=== PATIENT | female | born 1925 | race African-American/Black ===

== ENCOUNTER 2016-04-05 20:58 | Emergency (ER) | payer OTHER, BC ==
--- NOTE | 2016-04-05 21:22 | PDOC ---
History of Present Illness - General History Source: Patient Exam Limitations: No Limitations - History of Present Illness Initial Comments: 04/05/16 21:34 The patient is a 89 year old female with significant past medical history of PVD s/p bypass RLE, PE on eliquis, CAD, TIA, hypertension, hyperlipidemia, COPD , GERD, OA who presents to the ED with left-sided neck pain prior to arrival. Patient reports 1 week of pain, tightness, and tingling in her left leg with 2 episodes of a left arm discomfort that she describes as bubbling sensation. She states while sitting down using her computer, she started to experience some left-sided neck pain and decided to come in. Patient admits that she normally feels some discomfort and tingling her legs after sitting down using her computer for a long period of time. She denies diaphoresis, lightheadedness , SOB, chest pain, nausea, and vomiting. At time of evaluation, she states she is feeling unwell. The patient denies fever, chills, cough, abdominal pain, and diarrhea. Allergies: NKDA Social History: No alcohol, tobacco, or drug use reported. Past Surgical History: PVD s/p bypass RLE, cholecystectomy PCP: Dr. Rosalie Sapp <Merry Yanez - Last Filed: 04/05/16 21:34> <Yoandy Melton - Last Filed: 04/05/16 23:14> - General Chief Complaint: Pain Stated Complaint: PAIN Time Seen by Provider: 04/05/16 21:14 Past History <Merry Yanez - Last Filed: 04/05/16 21:34> - Past Medical History Anemia: No Asthma: No Cancer: No Cardiac Disorders: Yes (ACS) CVA: Yes (TIA) COPD: No CHF: No DVT: Yes (RLE) Diabetes: No GI Disorders: Yes (GERD, PANCREATITIS, DYSPHAGIA) Disorders: Yes (OVERACTIVE BLADDER) HTN: Yes Hypercholesterolemia: Yes Kidney Stones: Yes Liver Disease: No Suicide Attempt (Hx): No Seizures: No Thyroid Disease: No - Surgical History Abdominal Surgery: No Appendectomy: No Cardiac Surgery: (BYPASS FOR RLE DVT) Cholecystectomy: Yes Lung Surgery: No Neurologic Surgery: No Orthopedic Surgery: No - Immunization History Immunization Up to Date: Yes - Psycho/Social/Smoking Cessation Hx Anxiety: No Suicidal Ideation: No Smoking Status: Yes Smoking History: Former smoker Have you smoked in the past 12 months: No Number of Cigarettes Smoked Daily: 6 Cigars Per Day: 0 Information on smoking cessation initiated: No 'Breaking Loose' booklet given: 10/15/14 Hx Alcohol Use: No Drug/Substance Use Hx: No Substance Use Type: None Hx Substance Use Treatment: No <Yoandy Melton - Last Filed: 04/05/16 23:14> - Past Medical History Allergies/Adverse Reactions: Allergies Allergy/AdvReac Type Severity Reaction Status Date / Time No Known Allergies Allergy Verified 04/05/16 21:10 Home Medications: Ambulatory Orders Amlodipine Besylate [Norvasc -] 2.5 mg PO DAILY 04/12/15 Apixaban [Eliquis] 5 mg PO DAILY 04/12/15 Metoprolol Tartrate 25 mg PO BID 04/12/15 Ranitidine [Zantac -] 150 mg PO ONCE 04/12/15 Simvastatin [Zocor -] 20 mg PO HS 04/12/15 Valsartan [Diovan -] 160 mg PO DAILY 04/12/15 Review of Systems - Review of Systems Able to Perform ROS?: Yes Comments:: 04/05/16 21:35 +left-sided neck pain, left leg pain with tightness and tingling, left arm discomfort Absent: fever, chills, cough, diaphoresis, lightheadedness, SOB, chest pain, abdominal pain, nausea, vomiting, and diarrhea <Merry Yanez - Last Filed: 04/05/16 21:34> *Physical Exam - Vital Signs Last Vital Signs Temp Pulse Resp BP Pulse Ox 97.9 F 73 18 139/70 100 04/05/16 21:06 04/05/16 21:06 04/05/16 21:06 04/05/16 21:06 04/05/16 21:06 <Merry Yanez - Last Filed: 04/05/16 21:34> - Vital Signs Last Vital Signs Temp Pulse Resp BP Pulse Ox 97.9 F 73 18 139/70 100 04/05/16 21:06 04/05/16 21:06 04/05/16 21:06 04/05/16 21:06 04/05/16 21:06 - Physical Exam General Appearance: Yes: Nourished, Appropriately Dressed. No: Apparent Distress HEENT: positive: EOMI, DENISE, Normal ENT Inspection Neck: positive: Supple. negative: Tender, Carotid bruit Respiratory/Chest: positive: Lungs Clear, Normal Breath Sounds. negative: Respiratory Distress Cardiovascular: positive: Regular Rhythm, Regular Rate Gastrointestinal/Abdominal: positive: Normal Bowel Sounds, Soft. negative: Tender Musculoskeletal: positive: Normal Inspection. negative: Vertebral Tenderness Extremity: positive: Normal Capillary Refill, Normal Inspection, Normal Range of Motion. negative: Tender Integumentary: positive: Normal Color Neurologic: positive: spirits model II-XII NML intact, Fully Oriented, Alert, Normal Mood/ Affect, Normal Response, Motor Strength 5/5 <Yoandy Melton - Last Filed: 04/05/16 23:14> Heart Score/ECG Review - ECG Impressions Comment:: 04/05/16 21:35 NSR @71bpm Nonspecific T wave abnormality Abnormal ECG <Merry Yanez - Last Filed: 04/05/16 21:34> ED Treatment Course - LABORATORY CBC & Chemistry Diagram: 04/05/16 21:53 04/05/16 21:53 <Yoandy Melton - Last Filed: 04/05/16 23:14> Medical Decision Making - Medical Decision Making 04/05/16 21:22 non specific symptoms normal exam will check urine and lytes as well as an ekg 04/05/16 23:12 normal labs feels better after ivf d/c home <Yoandy Melton - Last Filed: 04/05/16 23:14> *DC/Admit/Observation/Transfer - Attestations Scribe Attestion: 04/05/16 21:36 Documentation prepared by Merry aYnez, acting as medical esthetician for Yoandy Melton MD <Merry Yanez - Last Filed: 04/05/16 21:34> <Yoandy Melton - Last Filed: 04/05/16 23:14> Diagnosis at time of Disposition: Weak - Discharge Dispostion Disposition: HOME Condition at time of disposition: Improved - Referrals Referrals: Rosalie Sapp MD [Primary Care Provider] - Call tomorrow - Patient Instructions Additional Instructions: CONTINUE MEDICATIONS PRESCRIBED PLENTY OF FLUIDS (WATER) SEE YOUR DOCTOR THIS WEEK RETURN IF WORSENING OR NEW SYMPTOMS
[2016-04-05] MEDS ORDERED: SODIUM CHLORIDE 500 ML IV STA (21:23)
[2016-04-05 21:24] VITALS: BP 139/70; PULSE 73; TEMP 97.9; BMI 25.0
[2016-04-05 22:01] LABS: MCH 30.7 pg (25.7-33.7); MCHC 33.5 g/dl (32.0-36.0); MEAN CELL VOLUME 91.5 fl (80-96); MEAN PLT VOLUME 9.4 fl (7.5-11.1); PLATELET COUNT 181 K/MM3 (134-434); RDW 13.8 % (11.6-15.6); WHITE BLOOD COUNT 3.7 K/mm3 (4.0-10.0)
[2016-04-05 22:28] LABS: CALCIUM 9.7 mg/dL (8.5-10.1); CREATININE 0.9 mg/dL (0.55-1.02)
[2016-04-05 23:00] LABS: URINE APPEARANCE CLEAR; URINE BILIRUBIN NEGATIVE (NEGATIVE); URINE BLOOD NEGATIVE (NEGATIVE); URINE COLOR STRAW; URINE GLUCOSE (UA) NEGATIVE (NEGATIVE); URINE KETONE NEGATIVE (NEGATIVE); URINE NITRITE NEGATIVE (NEGATIVE); URINE PROTEIN NEGATIVE (NEGATIVE); URINE UROBILINOGEN NEGATIVE E.U./dl (0.2-1.0)
[2016-04-05 23:01] LABS: URINE LEUK ESTERASE TRACE (NEGATIVE)
[2016-04-05 23:06] LABS: URINE MUCUS RARE; URINE WBC <1 /hpf (3-5)
--- NOTE | 2016-04-06 10:28 | EKG ---
Test Reason : Blood Pressure : / mmHG Vent. Rate : 071 BPM Atrial Rate : 071 BPM P-R Int : 186 ms QRS Dur : 088 ms QT Int : 416 ms P-R-T Axes : 077 -15 096 degrees QTc Int : 452 ms NORMAL SINUS RHYTHM NONSPECIFIC T WAVE ABNORMALITY ABNORMAL ECG WHEN COMPARED WITH ECG OF 09-JAN-2016 18:22, NO SIGNIFICANT CHANGE WAS FOUND Confirmed by DALLAS BUTT MD ([id number]) on 04/06/2016 10:27:40 AM Referred By: Confirmed By:DALLAS BUTT MD
== END 2016-04-05 23:40 | disposition home or self-care (01) ==
LOC: JER 20:58
PROC: 3E0337Z Introduction of Electrolytic and Water Balance Substance into Peripheral Vein, Percutaneous Approach (ICD-10-PCS; principal; 2016-04-05)
DX: R53.1 Weakness (principal); I25.10 Atherosclerotic heart disease of native coronary artery without angina pectoris; I10 Essential (primary) hypertension; E78.5 Hyperlipidemia, unspecified; E78.00 Pure hypercholesterolemia, unspecified; K21.9 Gastro-esophageal reflux disease without esophagitis; M19.90 Unspecified osteoarthritis, unspecified site; Z86.711 Personal history of pulmonary embolism; Z79.01 Long term (current) use of anticoagulants; Z87.898 Personal history of other specified conditions
CPT/HCPCS: 36415; 80048; 81003; 81015; 85027; 93005; 93010; 96360; 99282-25

== ENCOUNTER 2016-08-05 16:43 | Observation (INO) | payer OTHER, BC ==
[2016-08-05 16:49] VITALS: BMI 29.2
--- NOTE | 2016-08-05 17:15 | PDOC ---
History of Present Illness - History of Present Illness Initial Comments: 08/05/16 18:20 Patient is an 89 alyson old female with significant medical hx of HTN, HLD, PVD s/ p bypass RLE, PE on eliquis, CAD, TIA, COPD, GERD, and OA who is presenting to the ED with chest tightness and left sided facial tingling for the past two hours. The patient reports shes had tongue and left sided facial numbness/ tingling (specifically her left cheek) intermittently for the past three weeks. She states that her symptoms worsen after she eats. The patient was seen and evaluated by ENT and PCP; she was given a nasal spray which she reports helped temporarily. Her symptoms returned today while eating a pastrami sandwich. When she had onset of her facial tingling, the patient also had an onset of chest tightness. Patients chest tightness is localized to the center of her chest, non-radiating, and rated 5/10 in severity. She is having pain while in the ED. The patient denies any shortness of breath, weakness, lightheadedness, palpitations, abdominal pain, nausea, vomiting, diarrhea, or diaphoresis. Social Hx: One drink per day (deion), 6 cigarettes per day. PCP: Rosalie Sapp MD Allergies: NKDA <Vanessa Gonzalez - Last Filed: 08/05/16 20:27> <Antolin Marion - Last Filed: 08/05/16 20:52> - General Chief Complaint: Allergic Reaction Stated Complaint: ALLERGIC REACTION Time Seen by Provider: 08/05/16 17:14 Past History <Vanessa Gonzalez - Last Filed: 08/05/16 20:27> - Past Medical History Anemia: No Asthma: No Cancer: No Cardiac Disorders: Yes (ACS) CVA: Yes (TIA) COPD: No CHF: No DVT: Yes (RLE) Diabetes: No GI Disorders: Yes (GERD, PANCREATITIS, DYSPHAGIA) Disorders: Yes (OVERACTIVE BLADDER) HTN: Yes Hypercholesterolemia: Yes Kidney Stones: Yes Liver Disease: No Suicide Attempt (Hx): No Seizures: No Thyroid Disease: No - Surgical History Abdominal Surgery: No Appendectomy: No Cardiac Surgery: (BYPASS FOR RLE DVT) Cholecystectomy: Yes Lung Surgery: No Neurologic Surgery: No Orthopedic Surgery: No - Immunization History Immunization Up to Date: Yes - Psycho/Social/Smoking Cessation Hx Anxiety: No Suicidal Ideation: No Smoking Status: Yes Smoking History: Former smoker Have you smoked in the past 12 months: No Number of Cigarettes Smoked Daily: 6 Cigars Per Day: 0 Information on smoking cessation initiated: No 'Breaking Loose' booklet given: 10/15/14 Hx Alcohol Use: No Drug/Substance Use Hx: No Substance Use Type: None Hx Substance Use Treatment: No <Antolin Marion - Last Filed: 08/05/16 20:52> - Past Medical History Allergies/Adverse Reactions: Allergies Allergy/AdvReac Type Severity Reaction Status Date / Time No Known Allergies Allergy Verified 08/05/16 16:47 Home Medications: Ambulatory Orders Amlodipine Besylate [Norvasc -] 2.5 mg PO DAILY 04/12/15 Apixaban [Eliquis] 5 mg PO DAILY 04/12/15 Metoprolol Tartrate 25 mg PO BID 04/12/15 Ranitidine [Zantac -] 150 mg PO ONCE 04/12/15 Simvastatin [Zocor -] 20 mg PO HS 04/12/15 Valsartan [Diovan -] 160 mg PO DAILY 04/12/15 Review of Systems - Review of Systems Comments:: 08/05/16 18:21 CONSTITUTIONAL: No fever, no chills, no fatigue EYES: No visual changes ENT: No ear pain, no sore throat CARDIOVASCULAR: Chest pain. No palpitations RESPIRATORY: No cough, no SOB GI: No abdominal pain, no nausea, no vomiting, no constipation, no diarrhea GENITOURINARY: No dysuria, no frequency, no hematuria MUSKULOSKELETAL: No backpain, no joint pain, no myalgias SKIN: No rash NEURO: Tingling to tongue and left cheek. No headache <Vanessa Gonzalez - Last Filed: 08/05/16 20:27> *Physical Exam - Vital Signs Last Vital Signs Temp Pulse Resp BP Pulse Ox 98.1 F 76 20 145/57 99 08/05/16 16:47 08/05/16 16:47 08/05/16 16:47 08/05/16 16:47 08/05/16 16:47 - Physical Exam Comments: 08/05/16 20:27 CONSTITUTIONAL: Well-appearing; well-nourished; in no apparent distress HEAD: Normocephalic; atraumatic EYES: PERRL; EOM intact ENMT: External appears normal; normal oropharynx NECK: Supple; non-tender; no cervical lymphadenopathy CARD: Normal S1, S2; no murmurs, rubs, or gallops RESP: Normal chest excursion with respiration; breath sounds clear and equal bilaterally; no wheezes, rhonchi, or rales ABD: Soft, non-distended; non-tender; no palpable organomegaly, no palpable hernias EXT: Normal ROM in all four extremities; non-tender to palpation; distal pulses intact SKIN: Warm, dry, no rash NEURO: No focal neurological deficiencies. <Vanessa Gonzalez - Last Filed: 08/05/16 20:27> - Vital Signs Last Vital Signs Temp Pulse Resp BP Pulse Ox 98.1 F 76 20 145/57 99 08/05/16 16:47 08/05/16 16:47 08/05/16 16:47 08/05/16 16:47 08/05/16 16:47 <Antolin Marion - Last Filed: 08/05/16 20:52> ED Treatment Course - LABORATORY CBC & Chemistry Diagram: 08/05/16 18:10 08/05/16 18:10 <Vanessa Gonzalez - Last Filed: 08/05/16 20:27> - LABORATORY CBC & Chemistry Diagram: 08/05/16 18:10 08/05/16 18:10 <Antolin Marion - Last Filed: 08/05/16 20:52> Medical Decision Making - Medical Decision Making 08/05/16 20:33 Patient is a well-appearing 89-year-old female with history of DVT/PE, hypertension, hyperlipidemia, presents with intermittent discomfort and swelling of the left upper lip and bucall mucosa as well as atraumatic, nonpleuritic chest tightness shortly prior to arrival. I suspect the patient's oral complains are related to parotid duct or salivary gland duct stone and unlikely related to angioedema. Patient currently has no evidence of angioedema , there is no evidence of dysphagia or respiratory compromise. Patient's EKG shows evidence of LVH with no evidence of acute ischemia. Chest x-ray shows no evidence of cardiomegaly. First set of cardiac enzymes within normal limit. Patient's symptoms resolved after administration of transdermal nitroglycerin.I discussed the case with Dr. Abbott of cardiology. He agrees with the plan of observation and possibly a nuclear stress test in the a.m. Will keep patient nothing by mouth. <Antolin Marion - Last Filed: 08/05/16 20:52> *DC/Admit/Observation/Transfer - Attestations Scribe Attestion: 08/05/16 18:22 Documentation prepared by Vanessa Gonzalez, acting as emergency medical technician basic for Antolin Marion MD. <Vanessa Gonzalez - Last Filed: 08/05/16 20:27> - Discharge Dispostion Admit: Yes - Attestations Physician Attestion: 08/05/16 20:32 The documentation was prepared by the scribe under my direct supervision. I have reviewed the documentation which correctly represents the findings, medical decision-making and critical action taken by me. <Antolin Marion - Last Filed: 08/05/16 20:52> Diagnosis at time of Disposition: Chest pain Qualifiers: Chest pain type: unspecified Qualified Code(s): R07.9 - Chest pain, unspecified - Discharge Dispostion Condition at time of disposition: Fair - Referrals Referrals: Rosalie Sapp MD [Primary Care Provider] -
[2016-08-05] MEDS ORDERED: NITROGLYCERIN 2% OINTMENT - 1GM PACKET TD ONE ×2 (18:33→18:36)
[2016-08-05 18:39] LABS: BASOPHIL 1.4 % (0-2.0); MCH 30.6 pg (25.7-33.7); MCHC 33.1 g/dl (32.0-36.0); MEAN CELL VOLUME 92.4 fl (80-96); MEAN PLT VOLUME 9.1 fl (7.5-11.1); NEUTROPHILS 29.3 % (42.8-82.8); PLATELET COUNT 175 K/MM3 (134-434); RDW 13.7 % (11.6-15.6)
[2016-08-05 18:51] LABS: INR 1.12 (0.82-1.09); PROTHROMBIN TIME (PATIENT) 12.3 SEC (9.98-11.88)
[2016-08-05 19:09] LABS: ALBUMIN 3.3 g/dl (3.4-5.0); ANION GAP 8 (8-16); BILIRUBIN,TOTAL 0.3 mg/dL (0.2-1.0); CALCIUM 9.1 mg/dL (8.5-10.1); CO2 26 mmol/L (21-32); GLUCOSE,RANDOM 91 mg/dL (74-106); SGOT/AST 20 U/L (15-37); SGPT/ALT 25 U/L (12-78)
[2016-08-05 19:13] LABS: ALK PHOS 63 U/L (45-117); TOT PROT 6.9 g/dl (6.4-8.2); TROPONIN I < 0.02 ng/ml (0.00-0.05)
--- NOTE | 2016-08-06 09:41 | EKG ---
Test Reason : Blood Pressure : / mmHG Vent. Rate : 065 BPM Atrial Rate : 065 BPM P-R Int : 182 ms QRS Dur : 088 ms QT Int : 416 ms P-R-T Axes : 056 -17 093 degrees QTc Int : 432 ms NORMAL SINUS RHYTHM MODERATE VOLTAGE CRITERIA FOR LVH, MAY BE NORMAL VARIANT NONSPECIFIC T WAVE ABNORMALITY ABNORMAL ECG WHEN COMPARED WITH ECG OF 05-APR-2016 21:27, NO SIGNIFICANT CHANGE WAS FOUND Confirmed by MANUELA EDWARD MD ([id number]) on 08/06/2016 9:40:59 AM Referred By: Confirmed By:MANUELA EDWARD MD
[2016-08-06] MEDS ORDERED: RANITIDINE HCL 150 MG TABLET (FP) PO SCH (12:45)
[2016-08-06] MEDS ORDERED: METOPROLOL TARTRATE 25 MG TABLET (FP) ONE (12:46)
[2016-08-06] MEDS ORDERED: amLODIPine BESYLATE 5 MG TABLET (FP) ONE (12:46)
[2016-08-06] MEDS ORDERED: VALSARTAN 80 MG TABLET (UD) ONE (12:46)
[2016-08-06] MEDS: METOPROLOL TARTRATE 25 MG TABLET (FP) PO SCH ×2 (12:49→21:21)
[2016-08-06] MEDS: VALSARTAN 160 MG TABLET (UD) PO SCH (12:49)
[2016-08-06] MEDS: amLODIPine BESYLATE 2.5 MG TABLET (FP) PO SCH (12:49)
--- NOTE | 2016-08-06 12:57 | HP ---
Admitting History and Physical - Primary Care Physician PCP: Rosalie Sapp - Admission Chief Complaint: Left sided chest Pain History of Present Illness: 89 alyson old female with significant medical hx of HTN, HLD, PVD s/p bypass RLE, PE on eliquis, CAD, TIA, COPD, GERD, and OA who is presenting to the ED with chest tightness and left sided facial tingling for the past two wks, patient has been having left sided facial tingling and numbness for past 2 wks that aggravates with eating, yesterday visited an ENT specialist, today developed Left sided chest pain that radiates to Neck 10, no associated perspiration, nausea or vomiting last NSt was reported negative in 2014. 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 No: Alzheimer's, Dementia Cardiovascular: Yes: AFIB, HTN, Hyperlipdemia Pulmonary: Yes: COPD Gastrointestinal: Yes: Peptic Ulcer Disease Heme/Onc: Yes: Other (low WBC) Musculoskeletal: Yes: Osteoarthritis - Past Surgical History Past Surgical History: Yes: Bypass (RLE), Cholecystectomy - Smoking History Smoking history: Former smoker Have you smoked in the past 12 months: No Aproximately how many cigarettes per day: 6 - Alcohol/Substance Use Hx Alcohol Use: No History of Substance Use: reports: None - Social History ADL: Independent History of Recent Travel: No Home Medications - Allergies Allergies/Adverse Reactions: Allergies Allergy/AdvReac Type Severity Reaction Status Date / Time No Known Allergies Allergy Verified 08/05/16 16:47 - Home Medications Home Medications: Ambulatory Orders Amlodipine Besylate [Norvasc -] 2.5 mg PO DAILY 04/12/15 Apixaban [Eliquis] 5 mg PO DAILY 04/12/15 Metoprolol Tartrate 25 mg PO BID 04/12/15 Ranitidine [Zantac -] 150 mg PO ONCE 04/12/15 Simvastatin [Zocor -] 20 mg PO HS 04/12/15 Valsartan [Diovan -] 160 mg PO DAILY 04/12/15 Family Disease History - Family Disease History Family Disease History: Heart Disease: Brother, [place]: Mother Review of Systems - Review of Systems Constitutional: denies: Chills, Diaphoresis, Fever Eyes: denies: Blurred Vision, Double Vision HENT: denies: Difficult Swallowing, Ear Discharge Neck: denies: Decreased ROM, Lumps Cardiovascular: reports: Chest Pain. denies: Palpitations, Shortness of Breath Respiratory: denies: Cough, Hemoptysis Gastrointestinal: denies: Abdominal Pain, Bloating Musculoskeletal: reports: Back Pain Integumentary: denies: Blister, Bruising Physical Examination Vital Signs: Vital Signs Temperature 98.0 F 08/06/16 11:48 Pulse Rate 56 L 08/06/16 11:48 Respiratory Rate 16 08/06/16 11:48 Blood Pressure 181/80 08/06/16 11:48 O2 Sat by Pulse Oximetry (%) 96 08/06/16 11:48 P Exam: General: Elderly F comfortable, not in acute distress, at denies any c/o Chest pain or SOB HEENT: Mm moist, anemia, PERRLA EOMI NECK: No JVD No Bruit CHEST: CTA B/L CVS: S1S2 R no m/g/r ABD: No Distention, Non tender Bs + EXT; No edema feet, no calf Tenderness, Pulses + 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 Code(s): R07.9 - CHEST PAIN, UNSPECIFIED Qualifiers: Chest pain type: unspecified Qualified Code(s): R07.9 - Chest pain, unspecified (2) Healed or old pulmonary embolism Assessment/Plan: On AC cont same Code(s): Z86.711 - PERSONAL HISTORY OF PULMONARY EMBOLISM (3) HTN (hypertension), benign Assessment/Plan: Cont all home medications Code(s): I10 - ESSENTIAL (PRIMARY) HYPERTENSION (4) Left facial numbness Assessment/Plan: Left Facial numbness, no motor weakness, can be sensory stroke, Neurology consult, Ct haed no acute changes, Carotid Doppler B/L moderate atherosclerosis Left > Rt , Left sided 69-70 Stenosis, MRI MRA after discussing with Neurology consult. Optimoze Bop control, F/U Lipid panel and TSH Code(s): R20.0 - ANESTHESIA OF SKIN (5) HLD (hyperlipidemia) Assessment/Plan: Cont Sttain F/U Lipid Panel and TSH Code(s): E78.5 - HYPERLIPIDEMIA, UNSPECIFIED (6) Carotid arterial disease Assessment/Plan: B/L Left > Rt F/U MRA, MRI after discussing with Neurology consult , BoP control , add ASA if cardiology agrees cont statin and BP meds. Code(s): I77.9 - DISORDER OF ARTERIES AND ARTERIOLES, UNSPECIFIED
[2016-08-06 13:39] LABS: CHOLESTEROL 209 mg/dL (50-200); LDL CHOLESTEROL (ONLY SJRH) 133 mg/dL (5-100)
[2016-08-06] MEDS: ASPIRIN COATED 81 MG TABLET.EC PO SCH (13:43)
--- NOTE | 2016-08-06 13:52 | CONSULT ---
Admitting History and Physical - Primary Care Physician PCP: Jasbir Richard - Admission History of Present Illness: Per EMR"Chief Complaint: Left sided chest Pain History of Present Illness: 89 alyson old female with significant medical hx of HTN, HLD, PVD s/p bypass RLE, PE on eliquis, CAD, TIA, COPD, GERD, and OA who is presenting to the ED with chest tightness and left sided facial tingling for the past two hours." Pt seen in ER. She had completed lunch without difficulty. She reports tingling and numbness in left facial region, started 3 weeks ago, varying in severity. 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 Cardiovascular: Yes: HTN, Hyperlipdemia Pulmonary: Yes: COPD Gastrointestinal: Yes: Peptic Ulcer Disease Heme/Onc: Yes: Other (low WBC) Musculoskeletal: Yes: Osteoarthritis - Past Surgical History Past Surgical History: Yes: Bypass (RLE), Cholecystectomy - Smoking History Smoking history: Former smoker Have you smoked in the past 12 months: No Aproximately how many cigarettes per day: 6 - Alcohol/Substance Use Hx Alcohol Use: No History of Substance Use: reports: None - Social History ADL: Independent History of Recent Travel: No History - Admission Reason For Visit: CHEST DISCOMFORT - Diagnostics X-ray: Report Reviewed CT Scan: Report Reviewed - General Mental Status: Alert and Oriented, Awake and Alert, Able to Follow Commands Attention: Intact Ability to Follow Directions: Excellent Head/Neck Control: WFL - Hearing Hearing: Functional Speech Evaluation - Communication Primary Language: YAKUT Communication: Yes: Within Normal Limits Oral Expression Ability: Yes: No Impairment - Speech Production Able to Make Needs Known: Yes: WNL Intelligibility: Yes: WNL - Speech Characteristics Voice Loudness: Normal Voice Pitch: Yes: Normal Voice Phonatory-based Quality: Yes: Normal Speech Pattern: Normal Speech Clarity: < 100% Nasal Resonance: Normal Articulation: Yes: Precise - Language/Auditory Comprehension Follows: Yes: 2 Stage Simple Commands - Language/Verbal Expression Able to Respond to Simple Queries: Yes: WNL Able to Communicate Wants and Needs: Yes: WNL Functional Communication Status: Yes: WNL - Memory/Perception snf Memory: Yes: WNL Short Term Memory: Yes: WNL - Swallow Evaluation/Bedside Assessment Current Nutritional Intake: Regular, Thin Liquids Oral Secretions: Yes: WFL Dentition: Yes: Adequate Facial Symmetry at Rest: Symmetrical Facial Symmetry on Retraction: Symmetrical Facial Movement: Controlled Sensation: Reduced Left Against Resistance Opening: Normal Against Resistance Closing: Normal Pucker Lips: Normal Smile: Normal Lingual Movement: Normal, Symmetric Lingual Speed of Movement: Normal Lingual Movement Strgth Against Opposition: Normal Lingual Movement Characteristics: Normal Soft Palate Description: Normal Symmetry Velopharyngeal Movement: Normal Laryngeal Elevation: WFL Laryngeal Movement: Able to Palpate Rate of Intake: WFL Bolus Size: WFL Labial Seal: WFL Chewing: WFL Oral Prep Time: WFL A-P Transit: WFL Pocketing: None Timing of Swallow: WFL Coughing/Throat Clear: No Change in Voice: No Recommendations - Speech Evaluation, Impression/Plan Impression: Pt reports tingling in left facial region x 3 weeks, varying in severity. Speech,swallow, cognition WNL. - Dysphagia Impressions/Plan Swallowing Skills: WF Dysphagia Impressions: No Impairment *Silent aspiration: cannot be R/O at bedside - Recommendations Diet Consistency: Regular Medication Administration: Whole with water Liquids: Thin Liquids
[2016-08-06] MEDS ORDERED: ASPIRIN 81 MG CHEWABLE TABLETS ONE (13:54)
[2016-08-06] MEDS ORDERED: RANITIDINE HCL 150 MG TABLET (FP) ONE (13:55)
[2016-08-06 14:00] LABS: TROPONIN I < 0.02 ng/ml (0.00-0.05)
--- NOTE | 2016-08-06 17:23 | CON.CARD ---
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 Worse after she eats. Today also began experiencing chest tightness after arriving in ER. substernal , non-radiating, mild in severity. Discomfort was overall constant (varying in intensity. sx's lasted about 2 hours, currently resolved. Began after eating. Not similar to prior GI pain or PE discomfort. Not worsened by exertion. not reproducible to palpation. + paresthesia of bilateral lower extremities over past two weeks At baseline can walk 10 min before experiencing sob. stable. States she has only been taking her eliquis daily. The patient denies any shortness of breath, weakness, lightheadedness, palpitations, orthopnea, pnd, le edema. no f/c/s, cough, congestion, rashes, abdominal pain, nausea, vomiting, diarrhea , or diaphoresis. cards: saul PMHx/PSHx: pmhx/pshx Social Hx: One- two drink per day (deion), + tobacco fam hx: father [place] in his 80's ros: per [facility] Ambulatory Orders Amlodipine Besylate [Norvasc -] 2.5 mg PO DAILY 04/12/15 Apixaban [Eliquis] 5 mg PO DAILY 04/12/15 Metoprolol Tartrate 25 mg PO BID 04/12/15 Ranitidine [Zantac -] 150 mg PO ONCE 04/12/15 Simvastatin [Zocor -] 20 mg PO HS 04/12/15 Valsartan [Diovan -] 160 mg PO DAILY 04/12/15 Current Medications Amlodipine Besylate (Norvasc -) 2.5 mg PO DAILY [facility] Last Admin: 08/06/16 12:49 Dose: 2.5 mg Apixaban (Eliquis -) 5 mg PO BID [facility] Aspirin (Ecotrin -) 81 mg PO DAILY [facility] Last Admin: 08/06/16 13:43 Dose: 81 mg Atorvastatin Calcium (Lipitor -) 10 mg PO HS [facility] Metoprolol Tartrate (Lopressor -) 25 mg PO BID [facility] Last Admin: 08/06/16 12:49 Dose: 25 mg Ranitidine HCl (Zantac -) 150 mg PO DAILY [facility] Valsartan (Diovan -) 160 mg PO DAILY [facility] Last Admin: 08/06/16 12:49 Dose: 160 mg Vital Signs - 24 hr 08/05/16 08/06/16 08/06/16 21:19 07:33 11:48 Temperature 98.4 F 98.2 F 98.0 F Pulse Rate [ 59 L 67 56 L Apical] Respiratory 16 16 16 Rate Blood Pressure 156/59 161/76 181/80 [Right Arm] O2 Sat by Pulse 99 97 96 Oximetry (%) Intake & Output 08/04/16 08/05/16 08/06/16 08/07/16 07:59 07:59 07:59 07:59 Weight 150 lb NAD, calm jvd flat, neck supple rrr nl s1, s2 no mrg no ttp of sternum ctab, diminished air movment + bs soft ntnd ext without e/c/c ? carotid bruit aaox3 no jaundice, diaphoresis CBC, BMP 08/05/16 18:10 08/05/16 18:10 Laboratory Tests 08/05/16 08/06/16 18:10 12:58 Total Bilirubin 0.3 AST 20 ALT 25 D Troponin I < 0.02 < 0.02 Albumin 3.3 L Triglycerides 156 Cholesterol 209 H Total LDL Cholesterol 133 H HDL Cholesterol 61 H D EKG: SR, 65 bpm. LVH. no ischemic changes. Echo here 07/2016: nl lv size/fn. nl rv size (no mention of fn - previously nl ). 1+ lae. mod mac. 1+ mr/tr head ct: no acute pathology carotid u/s pending. CXR: no acute pulmonary disease. Melinda stress MPI 02/2014: no ischemia 89 yo smoker with hx of HTN, HLD, PVD s/p bypass RLE, PE/DVT (most recent 03/2015 ) on eliquis, TIA (per report), COPD, PUD, GERD (states she also has narrowing of esophagus), and OA who is presenting to the ED with left sided facial tingling, ER course complicated by the development of chest tightness CP - atypical for cardiac pain, ekg without ischemic changes and CE's neg x 2. Occurred prior to receiving her blood pressure medications (when she was hypertensive) and has since resolved. If no recurrence consider following up with Dr. Duffy as outpatient for possible ischemic evaluation. If pain recurs consider staying for inpatient stress test given risk factors. - not typical of prior PE discomfort. Of note patient states she has been taking eliquis daily for the past year. Bradycardic with normal O2 sat (no clinical signs of PE). Eliquis increased to BID dosing. If cp recurs can consider d-dimer - patient notes possible stricture in esophagus which may be contributing to discomfort. Followed by GI as outpatient. - tobacco cessation - con't current medical therapy facial tingling - ongoing neuro eval. carotid u/s pending - con't asa, statin HTN - vitals with elevated bp taken before patient received her bp medications. Con 't to monitor on medical regimen HL - statin PE - increased eliquis to bid dosing as mentioned above. PAD - ASA, statin + tobacco/etoh - cessation counseling, decreased etoh recommended
[2016-08-06] MEDS: APIXABAN 5 MG TABLET PO SCH (21:21)
[2016-08-06] MEDS ORDERED: ATORVASTATIN CA 10 MG TABLET (FP) PO SCH (22:00)
[2016-08-06] MEDS ORDERED: PATIENT'S OWN MEDICATION (NON-FORMULARY) (Simvastatin 20 MG) PO SCH (22:00)
[2016-08-06] MEDS ORDERED: METOPROLOL TARTRATE 25 MG TABLET (FP) PO SCH (22:00)
[2016-08-07] MEDS ORDERED: amLODIPine BESYLATE 2.5 MG TABLET (FP) PO SCH (10:00)
[2016-08-07] MEDS ORDERED: APIXABAN 5 MG TABLET PO SCH (10:00)
[2016-08-07] MEDS ORDERED: VALSARTAN 160 MG TABLET (UD) PO SCH (10:00)
[2016-08-07] MEDS: RANITIDINE HCL 150 MG TABLET (FP) PO SCH (10:44)
[2016-08-07] MEDS: VALSARTAN 160 MG TABLET (UD) PO SCH (10:45)
[2016-08-07] MEDS: ASPIRIN COATED 81 MG TABLET.EC PO SCH (10:45)
[2016-08-07] MEDS: APIXABAN 5 MG TABLET PO SCH ×2 (10:45→21:33)
[2016-08-07] MEDS: amLODIPine BESYLATE 2.5 MG TABLET (FP) PO SCH (10:45)
[2016-08-07] MEDS: METOPROLOL TARTRATE 25 MG TABLET (FP) PO SCH ×2 (10:45→21:33)
--- NOTE | 2016-08-07 12:07 | PN ---
Progress Note (short form) - Note Progress Note: s: no cp sob palps dizzy; facial sxs resolved o: Vital Signs Period Temp Pulse Resp BP Sys/Bower Pulse Ox Last 24 Hr 97.9 F-98.8 F 55-74 16-20 124-156/51-74 96-96 NAD, calm jvd flat, neck supple rrr nl s1, s2 no mrg cta bl, nl eff + bs soft nt nd ext without e/c/c aaox3 no jaundice, diaphoresis Current Medications Generic Name Dose Route Start Last Admin Trade Name Gerry PRN Reason Stop Dose Admin Amlodipine Besylate 2.5 mg 08/06/16 12:45 08/07/16 10:45 Norvasc - PO 2.5 mg DAILY DIDIER Administration Apixaban 5 mg 08/06/16 22:00 08/07/16 10:45 Eliquis - PO 5 mg BID DIDIER Administration Aspirin 81 mg 08/06/16 13:00 08/07/16 10:45 Ecotrin - PO 81 mg DAILY DIDIER Administration Atorvastatin Calcium 10 mg 08/06/16 22:00 08/06/16 21:21 Lipitor - PO 10 mg HS DIDIER Administration Metoprolol Tartrate 25 mg 08/06/16 12:45 08/07/16 10:45 Lopressor - PO 25 mg BID DIDIER Administration Ranitidine HCl 150 mg 08/07/16 10:00 08/07/16 10:44 Zantac - PO 150 mg DAILY DIDIER Administration Valsartan 160 mg 08/06/16 12:45 08/07/16 10:45 Diovan - PO 160 mg DAILY DIDIER Administration CBC, BMP 08/05/16 18:10 08/05/16 18:10 EKG: SR, 65 bpm. LVH. no ischemic changes. Echo here 07/2016: nl lv size/fn. nl rv size (no mention of fn - previously nl ). 1+ lae. mod mac. 1+ mr/tr head ct: no acute pathology tele: sr/sb CXR: no acute pulmonary disease. Melinda stress MPI 02/2014: no ischemia a/p: 89 yo smoker with hx of HTN, HLD, PVD s/p bypass RLE, PE/DVT (most recent ) on eliquis, TIA (per report), COPD, PUD, GERD (states she also has narrowing of esophagus), and OA who is presenting to the ED with left sided facial tingling, ER course complicated by the development of chest tightness CP - atypical for cardiac pain, ekg without ischemic changes and CE's neg x 2. Occurred prior to receiving her blood pressure medications (when she was hypertensive) and has since resolved, outpt f/u. - patient notes possible stricture in esophagus which may be contributing to discomfort. Followed by GI as outpatient. - con't current cardiac medical therapy facial tingling - ongoing neuro eval. - con't asa, statin HTN -cont home meds HL - on statin PE - on ac PAD - ASA, statin
--- NOTE | 2016-08-07 12:20 | PN ---
Progress Note (short form) - Note Progress Note: Patient seen and examined. Left sided chest pain resolved. Still c/o Tingling numbness on the left side of the face. C/O Feeling oozy. Denies nausea, vomiting, abdominal pain. 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 No: Alzheimer's, Dementia Cardiovascular: Yes: AFIB, HTN, Hyperlipdemia Pulmonary: Yes: COPD Gastrointestinal: Yes: Peptic Ulcer Disease Heme/Onc: Yes: Other (low WBC) Musculoskeletal: Yes: Osteoarthritis - Past Surgical History Past Surgical History: Yes: Bypass (RLE), Cholecystectomy - Smoking History Smoking history: Former smoker Have you smoked in the past 12 months: No Aproximately how many cigarettes per day: 6 - Alcohol/Substance Use Hx Alcohol Use: No History of Substance Use: reports: None - Social History ADL: Independent History of Recent Travel: No Home Medications - Allergies Allergies/Adverse Reactions: Allergies Allergy/AdvReac Type Severity Reaction Status Date / Time No Known Allergies Allergy Verified 08/05/16 16:47 - Home Medications Home Medications: Ambulatory Orders Amlodipine Besylate [Norvasc -] 2.5 mg PO DAILY 04/12/15 Apixaban [Eliquis] 5 mg PO DAILY 04/12/15 Metoprolol Tartrate 25 mg PO BID 04/12/15 Ranitidine [Zantac -] 150 mg PO ONCE 04/12/15 Simvastatin [Zocor -] 20 mg PO HS 04/12/15 Valsartan [Diovan -] 160 mg PO DAILY 04/12/15 Family Disease History - Family Disease History Family Disease History: Heart Disease: Brother, [place]: Mother Review of Systems - Review of Systems Constitutional: denies: Chills, Diaphoresis, Fever Eyes: denies: Blurred Vision, Double Vision HENT: denies: Difficult Swallowing, Ear Discharge Neck: denies: Decreased ROM, Lumps Cardiovascular: reports: Chest Pain. denies: Palpitations, Shortness of Breath Respiratory: denies: Cough, Hemoptysis Gastrointestinal: denies: Abdominal Pain, Bloating Musculoskeletal: reports: Back Pain Integumentary: denies: Blister, Bruising Physical Examination Vital Signs: Vital Signs Period Temp Pulse Resp BP Sys/Bower Pulse Ox Last 24 Hr 97.9 F-98.8 F 55-74 16-20 124-156/51-74 96-96 P Exam: General: Elderly F comfortable, not in acute distress, at denies any c/o Chest pain or SOB HEENT: Mm moist, anemia, PERRLA EOMI NECK: No JVD No Bruit CHEST: CTA B/L CVS: S1S2 R no m/g/r ABD: No Distention, Non tender Bs + EXT; No edema feet, no calf Tenderness, Pulses + 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 Resolved. Cardiology follow up appreciated. Code(s): R07.9 - CHEST PAIN, UNSPECIFIED Qualifiers: Chest pain type: unspecified Qualified Code(s): R07.9 - Chest pain, unspecified (2) Healed or old pulmonary embolism Assessment/Plan: On AC cont same Code(s): Z86.711 - PERSONAL HISTORY OF PULMONARY EMBOLISM (3) HTN (hypertension), benign Assessment/Plan: Controlled. Cont all home medications Code(s): I10 - ESSENTIAL (PRIMARY) HYPERTENSION (4) Left facial numbness Assessment/Plan: Dr. Corrales consulted for the same. Code(s): R20.0 - ANESTHESIA OF SKIN (5) HLD (hyperlipidemia) Assessment/Plan: Cont Sttain F/U Lipid Panel and TSH Code(s): E78.5 - HYPERLIPIDEMIA, UNSPECIFIED (6) Carotid arterial disease Assessment/Plan: B/L Left > Rt F/U MRA, MRI after discussing with Neurology consult , BoP control , add ASA if cardiology agrees cont statin and BP meds. Code(s): I77.9 - DISORDER OF ARTERIES AND ARTERIOLES, UNSPECIFIED
--- NOTE | 2016-08-07 13:27 | CONSULT ---
Consult - text type - Consultation Consultation Note: Neurology History of Present Illness Patient is an 89 alyson old female with significant medical hx of HTN, HLD, PVD s/ p bypass RLE, PE on eliquis, CAD, TIA, COPD, GERD, and OA who is presented to the ED with chest tightness and left sided facial tingling for two hours. The patient reports shes had tongue and left sided facial numbness/tingling ( specifically her left cheek) intermittently for the past three weeks. She states that her symptoms worsen after she eats. The patient was seen and evaluated by ENT and PCP; she was given a nasal spray which she reports helped temporarily. CT head completed and negative. Discussed diagnosis of trigeminal neuralgia with patient and symptoms seem consistent. Discussed trial of neurontin and she was in agreement. Past History - Past Medical History Anemia: No Asthma: No Cancer: No Cardiac Disorders: Yes (ACS) CVA: Yes (TIA) COPD: No CHF: No DVT: Yes (RLE) Diabetes: No GI Disorders: Yes (GERD, PANCREATITIS, DYSPHAGIA) Disorders: Yes (OVERACTIVE BLADDER) HTN: Yes Hypercholesterolemia: Yes Kidney Stones: Yes Liver Disease: No Suicide Attempt (Hx): No Seizures: No Thyroid Disease: No - Surgical History Abdominal Surgery: No Appendectomy: No Cardiac Surgery: (BYPASS FOR RLE DVT) Cholecystectomy: Yes Lung Surgery: No Neurologic Surgery: No Orthopedic Surgery: No - Immunization History Immunization Up to Date: Yes - Psycho/Social/Smoking Cessation Hx Anxiety: No Suicidal Ideation: No Smoking Status: Yes Smoking History: Former smoker Have you smoked in the past 12 months: No Number of Cigarettes Smoked Daily: 6 Cigars Per Day: 0 Information on smoking cessation initiated: No 'Breaking Loose' booklet given: 10/15/14 Hx Alcohol Use: No Drug/Substance Use Hx: No Substance Use Type: None Hx Substance Use Treatment: No - Past Medical History Allergies/Adverse Reactions: Allergies Allergy/AdvReac Type Severity Reaction Status Date / Time No Known Allergies Allergy Verified 08/05/16 16:47 Home Medications: Ambulatory Orders Amlodipine Besylate [Norvasc -] 2.5 mg PO DAILY 04/12/15 Apixaban [Eliquis] 5 mg PO DAILY 04/12/15 Metoprolol Tartrate 25 mg PO BID 04/12/15 Ranitidine [Zantac -] 150 mg PO ONCE 04/12/15 Simvastatin [Zocor -] 20 mg PO HS 04/12/15 Valsartan [Diovan -] 160 mg PO DAILY 04/12/15 Review of Systems - Review of Systems Comments:: 08/05/16 18:21 CONSTITUTIONAL: No fever, no chills, no fatigue EYES: No visual changes ENT: No ear pain, no sore throat CARDIOVASCULAR: Chest pain. No palpitations RESPIRATORY: No cough, no SOB GI: No abdominal pain, no nausea, no vomiting, no constipation, no diarrhea GENITOURINARY: No dysuria, no frequency, no hematuria MUSKULOSKELETAL: No backpain, no joint pain, no myalgias SKIN: No rash NEURO: Tingling to tongue and left cheek. No headache *Physical Exam - Vital Signs Last Vital Signs Temp Pulse Resp BP Pulse Ox 98.1 F 76 20 145/57 99 08/05/16 16:47 08/05/16 16:47 08/05/16 16:47 08/05/16 16:47 08/05/16 16:47 CONSTITUTIONAL: Well-appearing; well-nourished; in no apparent distress HEAD: Normocephalic; atraumatic EYES: PERRL; EOM intact ENMT: External appears normal; normal oropharynx NECK: Supple; non-tender; no cervical lymphadenopathy CARD: Normal S1, S2; no murmurs, rubs, or gallops RESP: Normal chest excursion with respiration; breath sounds clear and equal bilaterally; no wheezes, rhonchi, or rales ABD: Soft, non-distended; non-tender; no palpable organomegaly, no palpable hernias EXT: Normal ROM in all four extremities; non-tender to palpation; distal pulses intact SKIN: Warm, dry, no rash NEURO: No focal neurological deficiencies. CN intact slight decrease LT of L face, strength normal, CBCD WBC 3.0 K/mm3 (4.0-10.0) L 08/05/16 18:10 RBC 4.18 M/mm3 (3.60-5.2) 08/05/16 18:10 Hgb 12.8 GM/dL (10.7-15.3) 08/05/16 18:10 Hct 38.6 % (32.4-45.2) 08/05/16 18:10 MCV 92.4 fl (80-96) 08/05/16 18:10 MCHC 33.1 g/dl (32.0-36.0) 08/05/16 18:10 RDW 13.7 % (11.6-15.6) 08/05/16 18:10 Plt Count 175 K/MM3 (134-434) 08/05/16 18:10 MPV 9.1 fl (7.5-11.1) 08/05/16 18:10 CMP Sodium 143 mmol/L (136-145) 08/05/16 18:10 Potassium 3.9 mmol/L (3.5-5.1) 08/05/16 18:10 Chloride 109 mmol/L (98-107) H 08/05/16 18:10 Carbon Dioxide 26 mmol/L (21-32) 08/05/16 18:10 Anion Gap 8 (8-16) 08/05/16 18:10 BUN 20 mg/dL (7-18) H D 08/05/16 18:10 Creatinine 1.0 mg/dL (0.55-1.02) 08/05/16 18:10 Creat Clearance w eGFR 52.20 (>60) 08/05/16 18:10 Calcium 9.1 mg/dL (8.5-10.1) 08/05/16 18:10 Total Bilirubin 0.3 mg/dL (0.2-1.0) 08/05/16 18:10 AST 20 U/L (15-37) 08/05/16 18:10 ALT 25 U/L (12-78) D 08/05/16 18:10 Alkaline Phosphatase 63 U/L (45-117) 08/05/16 18:10 Total Protein 6.9 g/dl (6.4-8.2) 08/05/16 18:10 Albumin 3.3 g/dl (3.4-5.0) L 08/05/16 18:10 Medical Decision Making 89 alyson old female with significant medical hx of HTN, HLD, PVD s/p bypass RLE, PE on eliquis, CAD, TIA, COPD, GERD, and OA who is presented to the ED with chest tightness and left sided facial tingling for two hours. The patient reports shes had tongue and left sided facial numbness/tingling (specifically her left cheek) intermittently for the past three weeks. She states that her symptoms worsen after she eats. The patient was seen and evaluated by ENT and PCP; she was given a nasal spray which she reports helped temporarily. CT head completed and negative. Discussed diagnosis of trigeminal neuralgia with patient and symptoms seem consistent. Discussed trial of neurontin and she was in agreement. Will use very low dose, 100mg twice daily until symptoms resolve. Can use as outpatient as well.
[2016-08-07] MEDS: GABAPENTIN 100 MG CAPSULE (FP) PO SCH ×2 (14:27→21:47)
[2016-08-07] MEDS: NICOTINE 14 MG/24 HOURS TOPICAL PATCH TD SCH (16:32)
[2016-08-07] MEDS ORDERED: ATORVASTATIN CA 20 MG TABLET (FP) PO SCH (22:00)
[2016-08-08 07:49] LABS: CALCIUM 9.6 mg/dL (8.5-10.1)
[2016-08-08 07:55] LABS: ALBUMIN 3.2 g/dl (3.4-5.0); ALK PHOS 57 U/L (45-117); ANION GAP 8 (8-16); BILIRUBIN,TOTAL 0.4 mg/dL (0.2-1.0); CO2 29 mmol/L (21-32); CREATININE 0.8 mg/dL (0.55-1.02); GLUCOSE,RANDOM 95 mg/dL (74-106); SGOT/AST 17 U/L (15-37); SGPT/ALT 19 U/L (12-78); TOT PROT 6.6 g/dl (6.4-8.2)
[2016-08-08 08:08] LABS: BASOPHIL 0.8 % (0-2.0); MCH 31.4 pg (25.7-33.7); MEAN CELL VOLUME 92.4 fl (80-96); MEAN PLT VOLUME 9.1 fl (7.5-11.1); NEUTROPHILS 31.1 % (42.8-82.8); PLATELET COUNT 173 K/MM3 (134-434); RDW 13.2 % (11.6-15.6); WHITE BLOOD COUNT 3.5 K/mm3 (4.0-10.0)
[2016-08-08 08:54] LABS: THYROID STIMULATING HORMONE 0.93 uIU/ml (0.358-3.74)
[2016-08-08] MEDS: APIXABAN 5 MG TABLET PO SCH (09:09)
[2016-08-08] MEDS: GABAPENTIN 100 MG CAPSULE (FP) PO SCH (09:09)
[2016-08-08] MEDS: NICOTINE 14 MG/24 HOURS TOPICAL PATCH TD SCH (09:09)
[2016-08-08] MEDS: ASPIRIN COATED 81 MG TABLET.EC PO SCH (09:10)
[2016-08-08] MEDS: METOPROLOL TARTRATE 25 MG TABLET (FP) PO SCH (09:10)
[2016-08-08] MEDS: VALSARTAN 160 MG TABLET (UD) PO SCH (09:10)
[2016-08-08] MEDS: amLODIPine BESYLATE 2.5 MG TABLET (FP) PO SCH (09:10)
[2016-08-08] MEDS: RANITIDINE HCL 150 MG TABLET (FP) PO SCH (09:10)
--- NOTE | 2016-08-08 11:29 | PN ---
Progress Note (short form) - Note Progress Note: s: no cp sob palps dizzy o: Vital Signs Period Temp Pulse Resp BP Sys/Bower Pulse Ox Last 24 Hr 97.7 F-99.8 F 47-52 18-18 132-159/46-61 96 NAD, calm jvd flat, neck supple rrr nl s1, s2 no mrg cta bl, nl eff + bs soft nt nd ext without e/c/c aaox3 no jaundice, diaphoresis Current Medications Generic Name Dose Route Start Last Admin Trade Name Gerry PRN Reason Stop Dose Admin Amlodipine Besylate 2.5 mg 08/06/16 12:45 08/08/16 09:10 Norvasc - PO 2.5 mg DAILY DIDIER Administration Apixaban 5 mg 08/06/16 22:00 08/08/16 09:09 Eliquis - PO 5 mg BID DIDIER Administration Aspirin 81 mg 08/06/16 13:00 08/08/16 09:10 Ecotrin - PO 81 mg DAILY DIDIER Administration Atorvastatin Calcium 20 mg 08/07/16 22:00 08/07/16 21:33 Lipitor - PO 20 mg HS DIDIER Administration Gabapentin 100 mg 08/07/16 13:30 08/08/16 09:09 Neurontin - PO 100 mg BID DIDIER Administration Metoprolol Tartrate 25 mg 08/06/16 12:45 08/08/16 09:10 Lopressor - PO Not Given BID DIDIER Nicotine 14 mg 08/07/16 16:15 08/08/16 09:09 Nicoderm Patch - TD 14 mg DAILY DIDIER Administration Ranitidine HCl 150 mg 08/07/16 10:00 08/08/16 09:10 Zantac - PO 150 mg DAILY DIDIER Administration Valsartan 160 mg 08/06/16 12:45 08/08/16 09:10 Diovan - PO Not Given DAILY DIDIER CBC, BMP 08/08/16 05:35 08/08/16 05:35 EKG: SR, 65 bpm. LVH. no ischemic changes. Echo here 07/2016: nl lv size/fn. nl rv size (no mention of fn - previously nl ). 1+ lae. mod mac. 1+ mr/tr head ct: no acute pathology tele: sr/sb CXR: no acute pulmonary disease. Melinda stress MPI 02/2014: no ischemia a/p: 89 yo smoker with hx of HTN, HLD, PVD s/p bypass RLE, PE/DVT (most recent ) on eliquis, TIA (per report), COPD, PUD, GERD (states she also has narrowing of esophagus), and OA who is presenting to the ED with left sided facial tingling, ER course complicated by the development of chest tightness CP - atypical for cardiac pain, ekg without ischemic changes and CE's neg x 2. Occurred prior to receiving her blood pressure medications (when she was hypertensive) and has since resolved, outpt f/u. - patient notes possible stricture in esophagus which may be contributing to discomfort. Followed by GI as outpatient. - con't current cardiac medical therapy facial tingling - seen by neuro, started tx for trigeminal neuralgia - con't asa, statin HTN -cont home meds HL - on statin PE - on ac PAD - ASA, statin cardiac marques stable for dc
--- NOTE | 2016-08-08 13:41 | PN ---
Progress Note (short form) - Note Progress Note: Patient seen and examined. Seen by neurology. Diagnosed with trigeminal neuralgia. Started on gabapentin. Feeling better. Left sided chest pain resolved. 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 No: Alzheimer's, Dementia Cardiovascular: Yes: AFIB, HTN, Hyperlipdemia Pulmonary: Yes: COPD Gastrointestinal: Yes: Peptic Ulcer Disease Heme/Onc: Yes: Other (low WBC) Musculoskeletal: Yes: Osteoarthritis - Past Surgical History Past Surgical History: Yes: Bypass (RLE), Cholecystectomy - Smoking History Smoking history: Former smoker Have you smoked in the past 12 months: No Aproximately how many cigarettes per day: 6 - Alcohol/Substance Use Hx Alcohol Use: No History of Substance Use: reports: None - Social History ADL: Independent History of Recent Travel: No Home Medications - Allergies Allergies/Adverse Reactions: Allergies Allergy/AdvReac Type Severity Reaction Status Date / Time No Known Allergies Allergy Verified 08/05/16 16:47 - Home Medications Home Medications: Ambulatory Orders Amlodipine Besylate [Norvasc -] 2.5 mg PO DAILY 04/12/15 Apixaban [Eliquis] 5 mg PO DAILY 04/12/15 Metoprolol Tartrate 25 mg PO BID 04/12/15 Ranitidine [Zantac -] 150 mg PO ONCE 04/12/15 Simvastatin [Zocor -] 20 mg PO HS 04/12/15 Valsartan [Diovan -] 160 mg PO DAILY 04/12/15 Family Disease History - Family Disease History Family Disease History: Heart Disease: Brother, [place]: Mother Review of Systems - Review of Systems Constitutional: denies: Chills, Diaphoresis, Fever Eyes: denies: Blurred Vision, Double Vision HENT: denies: Difficult Swallowing, Ear Discharge Neck: denies: Decreased ROM, Lumps Cardiovascular: reports: Chest Pain. denies: Palpitations, Shortness of Breath Respiratory: denies: Cough, Hemoptysis Gastrointestinal: denies: Abdominal Pain, Bloating Musculoskeletal: reports: Back Pain Integumentary: denies: Blister, Bruising Physical Examination Vital Signs: Vital Signs Period Temp Pulse Resp BP Sys/Bower Pulse Ox Last 24 Hr 97.7 F-99.8 F 47-52 18-18 132-159/46-61 96 P Exam: General: Elderly F comfortable, not in acute distress, at denies any c/o Chest pain or SOB HEENT: Mm moist, anemia, PERRLA EOMI NECK: No JVD No Bruit CHEST: CTA B/L CVS: S1S2 R no m/g/r ABD: No Distention, Non tender Bs + EXT; No edema feet, no calf Tenderness, Pulses + [employer]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 , Normal cranial N, no facial asymmetry, motor 4/5 in all extremities , Derm: Normal Imaging - Results Chest X-ray: Report Reviewed (Cardiomegaly no infiltrates) Cat Scan: Report Reviewed (Ct Head Moderate atrophy, microvascular changes) EKG: Report Reviewed (HR 65 NSR LVH , LAD same as base line) CBC, BMP 08/05/16 18:10 08/05/16 18:10 Current Medications Amlodipine Besylate (Norvasc -) 2.5 mg PO DAILY [facility] Last Admin: 08/08/16 09:10 Dose: 2.5 mg Apixaban (Eliquis -) 5 mg PO BID [facility] Last Admin: 08/08/16 09:09 Dose: 5 mg Aspirin (Ecotrin -) 81 mg PO DAILY [facility] Last Admin: 08/08/16 09:10 Dose: 81 mg Atorvastatin Calcium (Lipitor -) 20 mg PO HS [facility] Last Admin: 08/07/16 21:33 Dose: 20 mg Gabapentin (Neurontin -) 100 mg PO BID [facility] Last Admin: 08/08/16 09:09 Dose: 100 mg Metoprolol Tartrate (Lopressor -) 25 mg PO BID [facility] Last Admin: 08/08/16 09:10 Dose: Not Given Nicotine (Nicoderm Patch -) 14 mg TD DAILY [facility] Last Admin: 08/08/16 09:09 Dose: 14 mg Ranitidine HCl (Zantac -) 150 mg PO DAILY [facility] Last Admin: 08/08/16 09:10 Dose: 150 mg Valsartan (Diovan -) 160 mg PO DAILY [facility] Last Admin: 08/08/16 09:10 Dose: Not Given Problem List - Problems (1) Chest pain Assessment/Plan: Atypical. Resolved. Cardiology follow up appreciated. Code(s): R07.9 - CHEST PAIN, UNSPECIFIED Qualifiers: Chest pain type: unspecified Qualified Code(s): R07.9 - Chest pain, unspecified (2) Healed or old pulmonary embolism Assessment/Plan: On AC cont same Code(s): Z86.711 - PERSONAL HISTORY OF PULMONARY EMBOLISM (3) HTN (hypertension), benign Assessment/Plan: Controlled. Cont all home medications Code(s): I10 - ESSENTIAL (PRIMARY) HYPERTENSION (4) Left facial numbness Assessment/Plan: Seen by Neurology-Dr. Jung. Trigeminal neuralgia. Started on gabapentin 100 mg BID. Feeling better. Stable for discharge Code(s): R20.0 - ANESTHESIA OF SKIN (5) HLD (hyperlipidemia) Assessment/Plan: Cont Sttain F/U Lipid Panel and TSH Code(s): E78.5 - HYPERLIPIDEMIA, UNSPECIFIED (6) Carotid arterial disease Assessment/Plan: B/L Left > Rt F/U MRA, MRI after discussing with Neurology consult , BoP control , add ASA if cardiology agrees cont statin and BP meds. Code(s): I77.9 - DISORDER OF ARTERIES AND ARTERIOLES, UNSPECIFIED Patient feeling better. Cleared by cardiology and neurology for discharge. To see PCP within 2 weeks of discharge. To follow up with vascular surgeon as outpatient for moderate carotid artery stenosis.
--- NOTE | 2016-08-08 13:42 | DS ---
Physical Examination Vital Signs: Vital Signs Temperature 97.7 F 08/08/16 05:03 Pulse Rate 52 L 08/08/16 05:03 Respiratory Rate 18 08/08/16 05:03 Blood Pressure 145/53 08/08/16 05:03 O2 Sat by Pulse Oximetry (%) 96 08/07/16 21:00 Constitutional: Yes: Well Nourished, No Distress Eyes: Yes: Conjunctiva Clear, EOM Intact HENT: Yes: Atraumatic, Normocephalic Neck: Yes: Supple, Trachea Midline Respiratory: Yes: Regular, CTA Bilaterally Gastrointestinal: Yes: Normal Bowel Sounds, Soft Musculoskeletal: Yes: WNL Extremities: Yes: WNL Edema: No Peripheral Pulses WNL: Yes Neurological: Yes: Alert, Oriented ...Motor Strength: WNL Psychiatric: Yes: Alert, Oriented Labs: CBC, BMP 08/08/16 05:35 08/08/16 05:35 Discharge Summary Reason For Visit: CHEST DISCOMFORT Current Active Problems Carotid arterial disease (Acute) Chest pain (Acute) HTN (hypertension), benign (Acute) Healed or old pulmonary embolism (Acute) Left carotid artery stenosis (Acute) Left facial numbness (Acute) Hospital Course: - Problems (1) Chest pain Assessment/Plan: Atypical. Resolved. Cardiology follow up appreciated. Code(s): R07.9 - CHEST PAIN, UNSPECIFIED Qualifiers: Chest pain type: unspecified Qualified Code(s): R07.9 - Chest pain, unspecified (2) Healed or old pulmonary embolism Assessment/Plan: On AC cont same Code(s): Z86.711 - PERSONAL HISTORY OF PULMONARY EMBOLISM (3) HTN (hypertension), benign Assessment/Plan: Controlled. Cont all home medications Code(s): I10 - ESSENTIAL (PRIMARY) HYPERTENSION (4) Left facial numbness Assessment/Plan: Seen by Neurology-Dr. Jung. Trigeminal neuralgia. Started on gabapentin 100 mg BID. Feeling better. Stable for discharge Code(s): R20.0 - ANESTHESIA OF SKIN (5) HLD (hyperlipidemia) Assessment/Plan: Cont Sttain F/U Lipid Panel and TSH Code(s): E78.5 - HYPERLIPIDEMIA, UNSPECIFIED (6) Carotid arterial disease Assessment/Plan: B/L Left > Rt F/U MRA, MRI after discussing with Neurology consult , BoP control , add ASA if cardiology agrees cont statin and BP meds. Code(s): I77.9 - DISORDER OF ARTERIES AND ARTERIOLES, UNSPECIFIED Patient feeling better. Cleared by cardiology and neurology for discharge. To see PCP within 2 weeks of discharge. To follow up with vascular surgeon as outpatient for moderate carotid artery stenosis. Condition: Good - Instructions Referrals: Rosalie Sapp MD [Primary Care Provider] - Disposition: HOME - Home Medications Comprehensive Discharge Medication List: Ambulatory Orders Amlodipine Besylate [Norvasc -] 2.5 mg PO DAILY 04/12/15 Apixaban [Eliquis] 5 mg PO DAILY 04/12/15 Metoprolol Tartrate 25 mg PO BID 04/12/15 Ranitidine [Zantac -] 150 mg PO ONCE 04/12/15 Simvastatin [Zocor -] 20 mg PO HS 04/12/15 Valsartan [Diovan -] 160 mg PO DAILY 04/12/15
[2016-08-08 14:35] VITALS: BP 138/50; PULSE 54; TEMP 98.5
== END 2016-08-08 14:50 | disposition home or self-care (01) ==
LOC: JER 16:43 → JERBED 20:52 → J4W 08-06 21:11
PROVIDERS: ADMIT Internal Medicine; ATTEND Internal Medicine
DX: R07.89 Other chest pain (principal); R20.0 Anesthesia of skin; I25.10 Atherosclerotic heart disease of native coronary artery without angina pectoris; I10 Essential (primary) hypertension; E78.5 Hyperlipidemia, unspecified; N32.81 Overactive bladder; J45.909 Unspecified asthma, uncomplicated; I73.9 Peripheral vascular disease, unspecified; K21.9 Gastro-esophageal reflux disease without esophagitis; M19.90 Unspecified osteoarthritis, unspecified site; I77.9 Disorder of arteries and arterioles, unspecified; Z86.711 Personal history of pulmonary embolism; Z86.718 Personal history of other venous thrombosis and embolism; Z79.01 Long term (current) use of anticoagulants; Z86.73 Personal history of transient ischemic attack (TIA), and cerebral infarction without residual deficits; Z87.19 Personal history of other diseases of the digestive system; Z87.891 Personal history of nicotine dependence; Z95.1 Presence of aortocoronary bypass graft
CPT/HCPCS: 36415; 70450-TC; 71010-TC; 80053; 80061; 82550; 83036; 83721; 84443; 84484; 85025; 85610; 93005; 93010; 93306-TC; 93880-TC; 99284-25; G0378